=== PATIENT | male | born 1925 | race Caucasian/White ===

== ENCOUNTER 2017-01-24 20:50 | Emergency (ER) | payer MEDICARE ==
[~2017-01-24] VITALS: Ht 167.6 cm; Wt 52.9 kg
[~2017-01-24 20:50] MED LIST: LEVO50TA4 PO; METO50TA OR; ST J81CH PO
[2017-01-24 21:03] VITALS: BP 137/63; PULSE 72; RESP 18; TEMP 97.8; O2SAT 95
== END 2017-01-24 23:20 | disposition left against medical advice (07) ==
LOC: PHED 20:50
DX: Z53.21 Procedure and treatment not carried out due to patient leaving prior to being seen by health care provider (principal)
CPT/HCPCS: 99281

== ENCOUNTER 2017-02-19 15:47 | Emergency (ER) | payer MEDICARE ==
[~2017-02-19] VITALS: Ht 167.6 cm; Wt 50.0 kg
[2017-02-19 16:17] VITALS: BP 129/51; PULSE 79; RESP 18; TEMP 99; O2SAT 93
[2017-02-19] MEDS ORDERED: SODIUM CHLOR 0.9% 1000 ML INJ 1,000 ML IV SCH (16:54)
[2017-02-19] MEDS ORDERED: LEVO88TA2 PO (16:55)
[2017-02-19] MEDS ORDERED: ASPI81TA11 PO (16:55)
[2017-02-19] MEDS ORDERED: METO25TA3 PO (16:55)
[2017-02-19] MEDS ORDERED: LOVA40TA PO (16:55)
[2017-02-19] MEDS ORDERED: SODIUM CHLORIDE 0.9% FLUSH 10 ML FLUSH IV FLUSH PRN (17:00)
[2017-02-19] MEDS: ONDANSETRON HCL 4 MG/2 ML VIAL IVP ONE ×2 (17:00→17:31)
--- NOTE | 2017-02-19 17:18 | RADRPT ---
EXAM DATE/TIME: 02/19/2017 17:02 [facility] COMPARISON: No previous studies available for comparison. INDICATIONS : Fever, cough. MEDICAL HISTORY : Hypertension. SURGICAL HISTORY : Cardiac stent. ENCOUNTER: Initial ACUITY: 1 week PAIN SCORE: 0/10 LOCATION: Bilateral chest FINDINGS: A single view of the chest demonstrates the lungs to be symmetrically aerated without evidence of mas s, infiltrate or effusion. The cardiomediastinal contours are unremarkable. Osseous structures are intact. CONCLUSION: No acute disease. Chato Bach MD on February 19, 2017 at 17:17 Board Certified Radiologist. This report was verified electronically.
[2017-02-19 17:33] LABS: AUTOMATED NEUTROPHIL # 10.6 TH/MM3 (1.8-7.7); BASOPHIL # 0.2 TH/MM3 (0-0.2); BASOPHIL % 1.7 % (0.0-2.0); EOSINOPHIL % 0.2 % (0.0-4.0); LYMPH % 7.7 % (9.0-44.0); MEAN CELL VOLUME 90.1 FL (80.0-100.0); MEAN CORPUSCULAR HEMOGLOBIN 29.5 PG (27.0-34.0); MEAN CORPUSCULAR HGB CONC 32.7 % (32.0-36.0); MONO % 7.3 % (0.0-8.0); NEUT % 83.1 % (16.0-70.0); PLATELET COUNT 255 TH/MM3 (150-450); RED BLOOD COUNT 3.11 MIL/MM3 (4.50-5.90); RED CELL DISTRIBUTION WIDTH 15.5 % (11.6-17.2); WHITE BLOOD COUNT 12.7 TH/MM3 (4.0-11.0)
[2017-02-19 17:35] LABS: CHLORIDE 101 MEQ/L (98-107); POTASSIUM 3.6 MEQ/L (3.5-5.1); SODIUM (NA) 134 MEQ/L (136-145)
[2017-02-19 17:37] LABS: HEMO FLAGS DIFF FINAL
[2017-02-19 17:39] LABS: ANION GAP 10 MEQ/L (5-15); BICARBONATE 22.9 MEQ/L (21.0-32.0); BLOOD UREA NITROGEN 23 MG/DL (7-18)
[2017-02-19 17:42] LABS: ALT (GPT) 13 U/L (12-78); AST (GOT) 15 U/L (15-37); GLOMERULAR FILTRATION RATE 57 ML/MIN (>89)
--- NOTE | 2017-02-19 17:42 | PD ---
HPI Chief Complaint: Cold / Flu Symptoms Time Seen by Provider: 16:34 Travel History International Travel<30 days: No Contact w/Intl Traveler<30days: No Traveled to known affect area: No History of Present Illness HPI 89 yo M c/o subjective fever, nausea, diarrhea and cough with dyspnea. Duration approx 2-3 days. Generalized abdominal pain also reported. Onset gradual. Pt sent from Dr Baca's office where he had a fever. PFSH Past Medical History Hx Anticoagulant Therapy: No Arthritis: Yes Autoimmune Disease: No Blood Disorders: No Depression: Yes (DEPRESSION DUE TO PAIN) Cancer: Yes (Kidney, colon, prostate) Cardiovascular Problems: Yes High Cholesterol: Yes Chemotherapy: Yes Cerebrovascular Accident: Yes Diminished Hearing: Yes ([place] - PT WEARS HEARING AIDS) Endocrine: No Gastrointestinal Disorders: Yes (G I BLEEDING; RECTUM CANCER) GERD: Yes Genitourinary: Yes (LEFT KIDNEY CANCER) Hypertension: Yes Immune Disorder: No Implanted Vascular Access Dvce: Yes Musculoskeletal: Yes Neurologic: Yes Psychiatric: No Reproductive: No Respiratory: Yes Migraines: Yes Radiation Therapy: No Thyroid Disease: Yes (Hypo-) Tetanus Vaccination: < 5 Years Influenza Vaccination: Yes Past Surgical History Abdominal Surgery: No Body Medical Devices: CARDIAC STENT; LIA EYE LENS Cardiac Surgery: Yes (CARDIAC STENT) Ear Surgery: No Endocrine Surgery: No Eye Surgery: Yes (LIA CATARACT SX) Genitourinary Surgery: Yes (LEFT NEPHRECTOMY AND PARTIAL BLADDER REMOVAL) Gynecologic Surgery: No Neurologic Surgery: No Oral Surgery: Yes (T&A AGE 7) Thoracic Surgery: No Other Surgery: Yes (Kidney, colon both for CA) Social History Alcohol Use: No Tobacco Use: No (FORMER) Substance Use: No Allergies-Medications (Allergen,Severity, Reaction): Coded Allergies: No Known Allergies (Verified , 02/19/17) Reported Meds & Prescriptions Reported Meds & Active Scripts Active Zofran (Ondansetron HCl) 4 Mg Tab 4 Mg PO Q6HR PRN Reported Aspirin EC (Aspirin) 81 Mg Tabdr 81 Mg PO DAILY Levothyroxine (Levothyroxine Sodium) 88 Mcg Tab 88 Mcg PO DAILY Lovastatin 40 Mg Tab 40 Mg PO HS Metoprolol Tartrate 25 Mg Tab 25 Mg PO DAILY Review of Systems Except as stated in HPI: all other systems reviewed are Neg General / Constitutional: No: Fever Respiratory: Positive: Cough Gastrointestinal: Positive: Nausea, Abdominal Pain Physical Exam Narrative GENERAL: 89 yo M, WNWD, NAD SKIN: Warm and dry. HEAD: Atraumatic. Normocephalic. EYES: Pupils equal and round. No scleral icterus. No injection or drainage. ENT: No nasal bleeding or discharge. Mucous membranes pink and moist. NECK: Trachea midline. No JVD. CARDIOVASCULAR: Regular rate and rhythm. RESPIRATORY: No accessory muscle use. Clear to auscultation. Breath sounds equal bilaterally. GASTROINTESTINAL: Soft, minimal TTP diffusely. No flank TTP. MUSCULOSKELETAL: Extremities without clubbing, cyanosis, or edema. No obvious deformities. NEUROLOGICAL: Awake and alert. No obvious cranial nerve deficits. Motor grossly within normal limits. Five out of 5 muscle strength in the arms and legs. Normal speech. PSYCHIATRIC: Appropriate mood and affect; insight and judgment normal. Data Data Last Documented VS Vital Signs Date Time Temp Pulse Resp B/P (MAP) Pulse Ox O2 Delivery O2 Flow Rate FiO2 02/19/17 20:05 02/19/17 19:30 78 16 95 Room Air 02/19/17 18:37 98.0 VS reviewed Orders Orders Complete Blood Count With Diff (02/19/17 16:54) Comprehensive Metabolic Panel (02/19/17 16:54) Lipase (02/19/17 16:54) Urinalysis - C+S If Indicated (02/19/17 16:54) Ct Abd/Pel W Iv Contrast(Rout) (02/19/17 16:54) Iv Access Insert/Monitor (02/19/17 16:54) Ecg Monitoring (02/19/17 16:54) Oximetry (02/19/17 16:54) Ondansetron Inj (Zofran Inj) (02/19/17 17:00) Sodium Chlor 0.9% 1000 Ml Inj (Ns 1000 M (02/19/17 16:54) Sodium Chloride 0.9% Flush (Ns Flush) (02/19/17 17:00) Chest, Single Ap (02/19/17 16:54) Iodixanol 320 Inj (Rad Ct) (Visipaque 32 (02/19/17 18:26) Labs Laboratory Tests Test 02/19/17 17:20 02/19/17 18:55 White Blood Count 12.7 TH/MM3 Red Blood Count 3.11 MIL/MM3 Hemoglobin 9.2 GM/DL Hematocrit 28.0 % Mean Corpuscular Volume 90.1 FL Mean Corpuscular Hemoglobin 29.5 PG Mean Corpuscular Hemoglobin Concent 32.7 % Red Cell Distribution Width 15.5 % Platelet Count 255 TH/MM3 Mean Platelet Volume 7.4 FL Neutrophils (%) (Auto) 83.1 % Lymphocytes (%) (Auto) 7.7 % Monocytes (%) (Auto) 7.3 % Eosinophils (%) (Auto) 0.2 % Basophils (%) (Auto) 1.7 % Neutrophils # (Auto) 10.6 TH/MM3 Lymphocytes # (Auto) 1.0 TH/MM3 Monocytes # (Auto) 0.9 TH/MM3 Eosinophils # (Auto) 0.0 TH/MM3 Basophils # (Auto) 0.2 TH/MM3 CBC Comment DIFF FINAL Differential Comment Blood Urea Nitrogen 23 MG/DL Creatinine 1.20 MG/DL Random Glucose 100 MG/DL Total Protein 6.1 GM/DL Albumin 2.6 GM/DL Calcium Level 8.5 MG/DL Alkaline Phosphatase 81 U/L Aspartate Amino Transf (AST/SGOT) 15 U/L Alanine Aminotransferase (ALT/SGPT) 13 U/L Total Bilirubin 0.5 MG/DL Sodium Level 134 MEQ/L Potassium Level 3.6 MEQ/L Chloride Level 101 MEQ/L Carbon Dioxide Level 22.9 MEQ/L Anion Gap 10 MEQ/L Estimat Glomerular Filtration Rate 57 ML/MIN Lipase 141 U/L Urine Color YELLOW Urine Turbidity CLEAR Urine pH 6.0 Urine Specific [place] 1.010 Urine Protein NEG mg/dL Urine Glucose (UA) NEG mg/dL Urine Ketones NEG mg/dL Urine Occult Blood NEG Urine Nitrite NEG Urine Bilirubin NEG Urine Leukocyte Esterase NEG Urine WBC 0-2 /hpf Urine Squamous Epithelial Cells 0-5 /hpf Microscopic Urinalysis Comment CULT NOT INDICATED MDM Medical Decision Making Medical Screen Exam Complete: Yes Emergency Medical Condition: Yes Medical Record Reviewed: Yes Differential Diagnosis Constipation, Gastritis, Acute Cholecystitis, Biliary Colic, Pancreatitis, HAND , Hepatitis, Bowel Obstruction, Cystitis, Mesenteric Ischemia, AAA, Appendicitis , Renal Stone/Hydronephrosis, GERD, perforated viscous Narrative Course CBC & BMP Diagram 02/19/17 17:20 Total Protein 6.1 L, Albumin 2.6 L, Calcium Level 8.5, Alkaline Phosphatase 81, Aspartate Amino Transf (AST/SGOT) 15, Alanine Aminotransferase (ALT/SGPT) 13, Total Bilirubin 0.5 Lipase normal Last 24 hours Impressions Chest X-Ray 02/19/17 1654 Signed Impressions: Service Date/Time: Sunday, February 19, 2017 17:02 - CONCLUSION: No acute disease. Chato Bach MD Abdomen/Pelvis CT 02/19/17 1654 Signed Impressions: Service Date/Time: Sunday, February 19, 2017 18:19 - CONCLUSION: 1. No acute finding is identified to explain the clinical symptoms. Small bowel and colon are diffusely distended mostly with fluid which is atypical. There are no findings to indicate bowel obstruction. 2. Non acute findings include severe atherosclerotic disease and cholelithiasis. There is osseous change in the left pubic bone which is nonspecific but could represent Paget's disease. Pete Carey MD Blood work is reassuring. Imaging is reassuring. UA pending at time of dictation. Oncoming provider to follow up UA. Scripts Ondansetron (Zofran) 4 Mg Tab 4 MG PO Q6HR Y for NAUSEA OR VOMITING, #21 TAB 0 Refills Prov: Reuben Mueller MD 02/19/17 Jason Mcpherson MD Feb 19, 2017 17:42
[2017-02-19 17:43] LABS: TOTAL BILIRUBIN ADULT 0.5 MG/DL (0.2-1.0)
[2017-02-19 17:45] LABS: ALKALINE PHOSPHATASE 81 U/L (45-117)
[2017-02-19] MEDS ORDERED: IODIXANOL 320 MG/ML 10 ML VIAL (for Rad CT) IV ONE (18:26)
[2017-02-19 18:36] VITALS: RESP 16; O2SAT 96
[2017-02-19 18:37] VITALS: BP 149/64; PULSE 76; RESP 16; TEMP 98; O2SAT 96
--- NOTE | 2017-02-19 18:42 | RADRPT ---
EXAM DATE/TIME: 02/19/2017 18:19 [facility] COMPARISON: No previous studies available for comparison. INDICATIONS : Non specific abdominal pain and fever. IV CONTRAST: 50 cc Visipaque (iodixanol) IV ORAL CONTRAST: No oral contrast ingested. RADIATION DOSE: 5.38 CTDIvol (mGy) MEDICAL HISTORY : Cardiovascular disease. Hypertension. Cerebrovascular disease.Rectal cancer. Left renal cancer. SURGICAL HISTORY : Coronary artery stent. Nephrectomy, left.Bladder repair. ENCOUNTER: Initial ACUITY: 2 days PAIN SCALE: 4/10 LOCATION: abdomen TECHNIQUE: Volumetric scanning of the abdomen and pelvis was performed. Using automated exposure control and ad justment of the mA and/or kV according to patient size, radiation dose was kept as low as reasonably achievable to obtain optimal diagnostic quality images. DICOM format image data is available electro nically for review and comparison. FINDINGS: LOWER LUNGS: There is a calcified granuloma in the right lower lobe with calcified lymph nodes in the right hilum. There is atelectasis at the lung bases. Dense calcification is present in the mitral annulus. LIVER: Homogeneous density without lesion. There is no dilation of the biliary tree. There is a single alex cified stone measuring 12 mm in the gallbladder. No wall thickening is present.. SPLEEN: Normal size with multiple calcifications likely related to prior granulomatous infection. PANCREAS: No acute abnormality. KIDNEYS: Left kidney is absent with clips in the renal fossa. The right kidney has a normal appearance without hydronephrosis, stone, or mass. ADRENAL GLANDS: Within normal limits. VASCULAR: There is severe atherosclerotic disease with ectatic infrarenal aorta. BOWEL/MESENTERY: Stomach and small bowel demonstrate no definite abnormality. Small bowel is mostly distended with flu id and measures up to 3 cm. Note specific transition point is identified. There is also fluid within the colon particularly the right colon. Mild sigmoid diverticulosis is present. There is a bowel stap le line in the rectum. There is no free intraperitoneal air or fluid. ABDOMINAL WALL: There is an anterior abdominal wall hernia to the right of the umbilicus containing anterior wall of a segment of bowel. There is also left lateral and posterior lateral abdominal wall laxity. These alejandro nges are likely related to prior nephrectomy. RETROPERITONEUM: There is no lymphadenopathy. BLADDER: No wall thickening or mass. REPRODUCTIVE: Dilution markers are present within the prostate gland. INGUINAL: There is no lymphadenopathy or hernia. MUSCULOSKELETAL: There degenerative changes of the lumbar spine with focal area of cortical and trabecular thickening involving the left pubic bone. Simple-appearing lipoma is present in the left proximal anterior thigh . CONCLUSION: 1. No acute finding is identified to explain the clinical symptoms. Small bowel and colon are diffuse ly distended mostly with fluid which is atypical. There are no findings to indicate bowel obstruction . 2. Non acute findings include severe atherosclerotic disease and cholelithiasis. There is osseous alejandro nge in the left pubic bone which is nonspecific but could represent Paget's disease. Pete Carey MD on February 19, 2017 at 18:32 Board Certified Radiologist. This report was verified electronically.
[2017-02-19 19:16] LABS: BLOOD, URINE NEG (NEG); GLUCOSE,URINE NEG (NEG); KETONE, URINE NEG (NEG); NITRITE,URINE NEG (NEG)
[2017-02-19 19:22] LABS: URINE COLOR YELLOW (YELLW/STRAW)
[2017-02-19 19:23] LABS: COMMENT (UR) CULT NOT INDICATED; CULTURE IF INDICATED CULT NOT INDICATED; SQUAMOUS EPITHELIAL CELL URINE 0-5 /hpf (0-5); WBC, URINE 0-2 /hpf (0-5)
[2017-02-19 19:30] VITALS: BP 140/63; PULSE 78; RESP 16; O2SAT 95
[2017-02-19] MEDS ORDERED: ZOFR4TAB PO (19:44)
--- NOTE | 2017-02-19 19:44 | PD ---
Physical Exam Time Seen by Provider: 19:[address] Mcpherson left this patient with me to check the urine and make a disposition , likely discharge. Data Data Last Documented VS Vital Signs Date Time Temp Pulse Resp B/P (MAP) Pulse Ox O2 Delivery O2 Flow Rate FiO2 02/19/17 19:00 79 18 94 Room Air 02/19/17 18:37 98.0 149/64 (92) Orders Orders Complete Blood Count With Diff (02/19/17 16:54) Comprehensive Metabolic Panel (02/19/17 16:54) Lipase (02/19/17 16:54) Urinalysis - C+S If Indicated (02/19/17 16:54) Ct Abd/Pel W Iv Contrast(Rout) (02/19/17 16:54) Iv Access Insert/Monitor (02/19/17 16:54) Ecg Monitoring (02/19/17 16:54) Oximetry (02/19/17 16:54) Ondansetron Inj (Zofran Inj) (02/19/17 17:00) Sodium Chlor 0.9% 1000 Ml Inj (Ns 1000 M (02/19/17 16:54) Sodium Chloride 0.9% Flush (Ns Flush) (02/19/17 17:00) Chest, Single Ap (02/19/17 16:54) Iodixanol 320 Inj (Rad Ct) (Visipaque 32 (02/19/17 18:26) Labs Laboratory Tests Test 02/19/17 17:20 02/19/17 18:55 White Blood Count 12.7 TH/MM3 Red Blood Count 3.11 MIL/MM3 Hemoglobin 9.2 GM/DL Hematocrit 28.0 % Mean Corpuscular Volume 90.1 FL Mean Corpuscular Hemoglobin 29.5 PG Mean Corpuscular Hemoglobin Concent 32.7 % Red Cell Distribution Width 15.5 % Platelet Count 255 TH/MM3 Mean Platelet Volume 7.4 FL Neutrophils (%) (Auto) 83.1 % Lymphocytes (%) (Auto) 7.7 % Monocytes (%) (Auto) 7.3 % Eosinophils (%) (Auto) 0.2 % Basophils (%) (Auto) 1.7 % Neutrophils # (Auto) 10.6 TH/MM3 Lymphocytes # (Auto) 1.0 TH/MM3 Monocytes # (Auto) 0.9 TH/MM3 Eosinophils # (Auto) 0.0 TH/MM3 Basophils # (Auto) 0.2 TH/MM3 CBC Comment DIFF FINAL Differential Comment Blood Urea Nitrogen 23 MG/DL Creatinine 1.20 MG/DL Random Glucose 100 MG/DL Total Protein 6.1 GM/DL Albumin 2.6 GM/DL Calcium Level 8.5 MG/DL Alkaline Phosphatase 81 U/L Aspartate Amino Transf (AST/SGOT) 15 U/L Alanine Aminotransferase (ALT/SGPT) 13 U/L Total Bilirubin 0.5 MG/DL Sodium Level 134 MEQ/L Potassium Level 3.6 MEQ/L Chloride Level 101 MEQ/L Carbon Dioxide Level 22.9 MEQ/L Anion Gap 10 MEQ/L Estimat Glomerular Filtration Rate 57 ML/MIN Lipase 141 U/L Urine Color YELLOW Urine Turbidity CLEAR Urine pH 6.0 Urine Specific [place] 1.010 Urine Protein NEG mg/dL Urine Glucose (UA) NEG mg/dL Urine Ketones NEG mg/dL Urine Occult Blood NEG Urine Nitrite NEG Urine Bilirubin NEG Urine Leukocyte Esterase NEG Urine WBC 0-2 /hpf Urine Squamous Epithelial Cells 0-5 /hpf Microscopic Urinalysis Comment CULT NOT INDICATED MDM Medical Record Reviewed: Yes Supervised Visit with EDMUND: No Interpretation(s) The urinalysis is normal. Differential Diagnosis Constipation, gastritis, acute cholecystitis, biliary colic, pancreatitis, hepatitis, bowel obstruction, mesenteric ischemia, abdominal aortic aneurysm- unlikely, cystitis, appendicitis, urinary stone, GERD, perforated viscus, urinary tract infection, gastroenteritis Narrative Course At this time the patient has no imaging/lab work to point to a specific cause for his symptoms. He does have diffusely distended small bowel and colon without any evidence for obstruction on the CT. The chest x-ray is normal. He does not have a urinary infection. Impression: Gastroenteritis. This is likely of viral etiology. Plan: The patient be given Zofran and follow-up with his primary care physician. He should increase clear liquids Diagnosis Primary Impression: Gastroenteritis and colitis, viral Reuben Mueller MD Feb 19, 2017 19:44
== END 2017-02-19 20:07 | disposition home or self-care (01) ==
LOC: PHED 15:47
DX: A08.4 Viral intestinal infection, unspecified (principal); M19.90 Unspecified osteoarthritis, unspecified site; I10 Essential (primary) hypertension; E78.00 Pure hypercholesterolemia, unspecified; E03.9 Hypothyroidism, unspecified; Z79.899 Other long term (current) drug therapy; Z86.73 Personal history of transient ischemic attack (TIA), and cerebral infarction without residual deficits
CPT/HCPCS: 71010; 74177; 80053; 81001; 83690; 85025; 96360; 96361; 99285; J7030; Q9967; J2405

== ENCOUNTER → 2017-04-11 | Outpatient (CLI) | payer MEDICARE ==
[~2017-04-11] MED LIST changes: +ALBU2TAB4 PO; +ASCO500C PO; +ASPI81TA23 PO; +CALC1TAB34 PO; +FERR240T8 PO; +GAS-CAP3 PO; +HYDR-3516 PO; +HYDR-755 PO; +IPRAAER INH; -LEVO50TA4 PO; +LEVO88TA2 PO; +LOPE-1 PO; +LOVA40TA PO; +METO25TA3 PO; -METO50TA OR; +METO50TA PO; +OXYGENDME NAS.CANULA; +OXYGENTANK NAS.CANULA; -ST J81CH PO; +TRIAPOW6 TP; +VENTAER INH; +VITA500T35 PO; +ZOFR4TAB PO
[2017-04-11 10:59] LABS: BLOOD, URINE NEG (NEG); COMMENT (UR) CULT NOT INDICATED; CULTURE IF INDICATED CULT NOT INDICATED; GLUCOSE,URINE NEG (NEG); KETONE, URINE NEG (NEG); NITRITE,URINE NEG (NEG); URINE COLOR YELLOW (YELLW/STRAW)
[2017-04-11 10:59] LABS: AUTOMATED NEUTROPHIL # 5.1 TH/MM3 (1.8-7.7); BASOPHIL % 0.6 % (0.0-2.0); EOSINOPHIL # 0.3 TH/MM3 (0-0.4); EOSINOPHIL % 3.8 % (0.0-4.0); HEMATOCRIT 32.1 % (39.0-51.0); HEMO FLAGS DIFF FINAL; LYMPH % 16.9 % (9.0-44.0); LYMPHOCYTE # 1.2 TH/MM3 (1.0-4.8); MEAN CELL VOLUME 95.1 FL (80.0-100.0); MEAN CORPUSCULAR HEMOGLOBIN 30.9 PG (27.0-34.0); MEAN CORPUSCULAR HGB CONC 32.5 % (32.0-36.0); MONO % 7.9 % (0.0-8.0); NEUT % 70.8 % (16.0-70.0); PLATELET COUNT 268 TH/MM3 (150-450); RED BLOOD COUNT 3.38 MIL/MM3 (4.50-5.90); RED CELL DISTRIBUTION WIDTH 15.3 % (11.6-17.2); WHITE BLOOD COUNT 7.2 TH/MM3 (4.0-11.0)
[2017-04-11 11:12] LABS: ANION GAP 9 MEQ/L (5-15); AST (GOT) 23 U/L (15-37); BICARBONATE 26.2 MEQ/L (21.0-32.0); BLOOD UREA NITROGEN 21 MG/DL (7-18); CHLORIDE 107 MEQ/L (98-107); GLOMERULAR FILTRATION RATE 67 ML/MIN (>89); GLUCOSE,FASTING 94 MG/DL (74-99); SODIUM (NA) 142 MEQ/L (136-145)
[2017-04-11 11:14] LABS: ALT (GPT) 21 U/L (12-78)
[2017-04-11 11:16] LABS: ALKALINE PHOSPHATASE 101 U/L (45-117); TOTAL BILIRUBIN ADULT 0.3 MG/DL (0.2-1.0)
--- NOTE | 2017-04-11 11:36 | RADRPT ---
EXAM DATE/TIME: 04/11/2017 11:14 [facility] COMPARISON: CHEST SINGLE AP, February 19, 2017, 17:02. INDICATIONS : Evaluate for pneumonia, pneumothorax and communicable diseases. Pre-op hernia repair MEDICAL HISTORY : Cardiovascular disease. Hypertension Carcinoma, rectal. SURGICAL HISTORY : Coronary artery Stent ENCOUNTER: Initial ACUITY: 1 day PAIN SCORE: 0/10 LOCATION: chest FINDINGS: The examination demonstrates moderate COPD changes. These are stable compared to previous examination . The cardiac and mediastinal contours are within normal limits. The visualized osseous structures ar e grossly intact. CONCLUSION: 1. COPD changes. No acute abnormality. Stable compared to previous. Jason Hamilton MD on April 11, 2017 at 11:34 Board Certified Radiologist. This report was verified electronically.
--- NOTE | 2017-04-12 18:04 | EKG ---
Date Performed: 04/11/2017 Time Performed: 10:31:03 PTAGE: 89 years EKG: Sinus rhythm Normal ECG PREVIOUS TRACING : 11/25/2004 19.35 Since the prior tracing, there has been a slight leftward s hift in axis, but otherwise no significant serial change. DOCTOR: Dejah Hernandez Interpretating Date/Time 04/12/2017 18:02:52
== END ==
LOC: CPRE 09:56
PROVIDERS: ATTEND Colon & Rectal Surgery
DX: Z01.810 Encounter for preprocedural cardiovascular examination (principal); Z01.811 Encounter for preprocedural respiratory examination; Z01.812 Encounter for preprocedural laboratory examination; K43.6 Other and unspecified ventral hernia with obstruction, without gangrene
CPT/HCPCS: 36415; 71020; 80053; 81001; 85025; 93005

== ENCOUNTER 2017-04-18 09:18 | Observation (INO) | payer MEDICARE ==
[~2017-04-18] VITALS: Ht 167.6 cm; Wt 49.5 kg
[~2017-04-18 09:18] MED LIST changes: -ALBU2TAB4 PO; +BUPIVACAINE/EPINEPHRINE 0.5% PF 30 ML VIAL ONE; -HYDR-3516 PO; +LIDOCAINE 1%/EPINEPHrine 1:100,000 SOLN 50 ML VIAL ONE; -METO25TA3 PO; -OXYGENDME NAS.CANULA; -OXYGENTANK NAS.CANULA; -VENTAER INH; -ZOFR4TAB PO
[2017-04-18] MEDS ORDERED: CHLORHEXIDINE GLUCONATE 2 % 1 PACK (2 CLOTHS) TOPICAL PRN (10:00)
[2017-04-18] MEDS ORDERED: INSULIN HUMAN REGULAR 1,000 UNITS/10 ML VIAL SQ PRN (10:00)
[2017-04-18] MEDS ORDERED: POVIDONE IODINE 5% (ANTISEPSIS KIT) 4 APPLICATIONS EACH NARE PRN (10:00)
[2017-04-18] MEDS ORDERED: LACTATED RINGER'S 1000 ML IV PRN (10:00)
[2017-04-18] MEDS ORDERED: METOPROLOL TARTRATE 25 MG TAB PO PRN (10:00)
[2017-04-18] MEDS ORDERED: SODIUM CHLORID 0.9% 500 ML IV PRN (10:00)
[2017-04-18] MEDS ORDERED: ACETAMINOPHEN 1000 MG/100 ML 100 ML IV ONE (10:54)
--- NOTE | 2017-04-18 11:33 | PD.HP.UP ---
H&P Update Note The Pre-Admit History and Physical Examination regarding the above named patient was reviewed (including, but not limited to, vital signs, heart, lungs, co-morbid conditions), and upon re-examination it is noted that: the patient's condition has not significantly changed since the last examination. Be Ferguson MD Apr 18, 2017 11:33
[2017-04-18] MEDS ORDERED: ceFAZolin 2 GM PREMIX 50 ML ONE (11:57)
[2017-04-18] MEDS ORDERED: ROCURONIUM INJ 50 MG/5 ML SYRINGE IV PUSH ONE (12:00)
[2017-04-18] MEDS ORDERED: LABETALOL HCL 100 MG/20 ML VIAL IV ONE (12:00)
[2017-04-18] MEDS ORDERED: LIDOCAINE HCL 1% PF 5 ML SYRINGE OTHER ONE (12:00)
[2017-04-18] MEDS ORDERED: DEXAMETHASONE SOD PHOS 4 MG/ML VIAL IV ONE (12:00)
[2017-04-18] MEDS ORDERED: PROPOFOL 200 MG/20 ML AMP IV ONE (12:00)
[2017-04-18] MEDS ORDERED: NEOSTIGMINE 3 MG/3 ML SYR IV ONE (12:00)
[2017-04-18] MEDS ORDERED: ONDANSETRON HCL 4 MG/2 ML VIAL IV ONE (12:00)
[2017-04-18] MEDS ORDERED: GLYCOPYRROLATE 1 MG/5 ML SYRINGE IV PUSH ONE (12:00)
[2017-04-18] MEDS ORDERED: ACETAMINOPHEN/HYDROcodone 325 MG/5 MG TAB PO PRN (13:00)
[2017-04-18] MEDS ORDERED: ENALAPRILAT 2.5 MG/2 ML VIAL IV PUSH PRN (13:00)
[2017-04-18] MEDS ORDERED: NALOXONE HCL 0.4 MG/ML AMP IV PUSH PRN (13:00)
[2017-04-18] MEDS ORDERED: Post-op Orders (for Pharmacy) MISC XX ONE (13:00)
[2017-04-18] MEDS ORDERED: MORPHINE SULFATE 30 MG/30 ML PCA IV SCH (13:00)
[2017-04-18] MEDS ORDERED: ACETAMINOPHEN 325 MG TAB PO PRN (13:00)
[2017-04-18] MEDS ORDERED: SODIUM CHLORIDE 0.9% FLUSH 5 ML FLUSH IVF PRN (13:00)
[2017-04-18] MEDS ORDERED: ENALAPRILAT 1.25 MG/ML VIAL IV PUSH PRN (13:00)
[2017-04-18] MEDS ORDERED: KETOROLAC TROMETHAMINE 30 MG/ML (IVP) VIAL IVP PRN (13:00)
[2017-04-18] MEDS ORDERED: BENZOCAINE 6 MG/MENTHOL 10 MG LOZENGE BUCCAL PRN (13:00)
[2017-04-18] MEDS ORDERED: POTASSIUM CHLOR 20 MEQ PREMIX 100 ML IV PRN (13:00)
[2017-04-18] MEDS ORDERED: ONDANSETRON HCL 4 MG/2 ML VIAL IV PUSH PRN (13:00)
[2017-04-18] MEDS ORDERED: POTASSIUM CHLOR 40 MEQ PREMIX 100 ML IV PRN (13:00)
[2017-04-18] MEDS ORDERED: DO NOT ADM ANY ANTICOAGULANT DRUGS PRN (13:30)
[2017-04-18] MEDS: D5-NS + KCL 20 MEQ INJ 1,000 ML IV SCH (13:30)
[2017-04-18] MEDS: PCA - TOTAL MG MORPHINE DELIVERED PER SHIFT SCH ×2 (14:00→22:08)
[2017-04-18] MEDS: METOCLOPRAMIDE HCL 10 MG/2 ML VIAL IVS SCH ×2 (14:00→20:25)
[2017-04-18] MEDS ORDERED: LOPERAMIDE HCL 2 MG CAP PO PRN (14:15)
[2017-04-18 17:24] VITALS: O2SAT 98
[2017-04-18] MEDS: ALBUTEROL SULFATE 90 MCG/ACT HFA 18 GM INHALER INH SCH ×2 (17:52→21:00)
[2017-04-18] MEDS ORDERED: NON-FORMULARY DRUG (Ipratropium-Albuterol Inh (Combivent Respimat Inh) 1 PUFF) INH SCH (18:00)
[2017-04-18] MEDS: SODIUM CHLORIDE 0.9% FLUSH 5 ML FLUSH IVF SCH ×2 (19:13→20:24)
[2017-04-18 20:00] VITALS: BP 115/56; PULSE 93; RESP 18; TEMP 96.9; O2SAT 96
[2017-04-18] MEDS: PRAVASTATIN SOD 40 MG TAB PO SCH (20:24)
[2017-04-19] VITALS (11 sets, daily range): BP systolic 126–166; BP diastolic 60–80; PULSE 70–82; RESP 14–24; TEMP 95.5–97; O2SAT 85–100
[2017-04-19 05:19] LABS: AUTOMATED NEUTROPHIL # 10.2 TH/MM3 (1.8-7.7); BASOPHIL % 0.1 % (0.0-2.0); EOSINOPHIL % 0.2 % (0.0-4.0); HEMATOCRIT 26.9 % (39.0-51.0); HEMO FLAGS DIFF FINAL; LYMPHOCYTE # 0.8 TH/MM3 (1.0-4.8); MEAN CORPUSCULAR HEMOGLOBIN 30.8 PG (27.0-34.0); MEAN CORPUSCULAR HGB CONC 32.8 % (32.0-36.0); MONO % 5.7 % (0.0-8.0); PLATELET COUNT 237 TH/MM3 (150-450); RED BLOOD COUNT 2.86 MIL/MM3 (4.50-5.90); RED CELL DISTRIBUTION WIDTH 15.1 % (11.6-17.2); WHITE BLOOD COUNT 11.7 TH/MM3 (4.0-11.0)
[2017-04-19 05:47] LABS: BICARBONATE 26.3 MEQ/L (21.0-32.0); POTASSIUM 4.3 MEQ/L (3.5-5.1)
[2017-04-19] MEDS: LEVOTHYROXINE SODIUM 88 MCG TAB PO SCH (05:47)
[2017-04-19] MEDS: D5-NS + KCL 20 MEQ INJ 1,000 ML IV SCH (05:55)
[2017-04-19] MEDS: PCA - TOTAL MG MORPHINE DELIVERED PER SHIFT SCH ×3 (05:56→21:48)
[2017-04-19] MEDS: ALBUTEROL SULFATE 90 MCG/ACT HFA 18 GM INHALER INH SCH ×2 (08:44→13:00)
[2017-04-19] MEDS: METOCLOPRAMIDE HCL 10 MG/2 ML VIAL IVS SCH ×2 (08:45→21:47)
[2017-04-19] MEDS: ASPIRIN EC 81 MG TABEC PO SCH (08:45)
[2017-04-19] MEDS: PANTOPRAZOLE SOD 40 MG DELAYED RELEASE TAB PO SCH (08:45)
[2017-04-19] MEDS: METOPROLOL TARTRATE 50 MG TAB PO SCH (08:45)
[2017-04-19] MEDS: TIOTROPIUM BROMIDE 18 MCG INH INH SCH ×2 (09:00→17:07)
[2017-04-19] MEDS: PANTOPRAZOLE SODIUM 40 MG VIAL IVP SCH (09:00)
[2017-04-19] MEDS: hydrOXYzine HCL 10 MG TAB PO SCH (09:00)
[2017-04-19] MEDS ORDERED: TRIAMCINOLONE 0.1% TP SCH (09:00)
[2017-04-19] MEDS: SODIUM CHLORIDE 0.9% FLUSH 5 ML FLUSH IVF SCH ×2 (09:00→21:00)
[2017-04-19] MEDS ORDERED: HYDR-3516 PO (09:57)
--- NOTE | 2017-04-19 09:58 | HHI.FF ---
Face to Face Verification Diagnosis: (1) Ventral hernia Physical Therapy Order: Evaluate and Treat, Improve ambulation, Strength and gait training Home Health Nursing Order: Signs/symptoms of disease process Wound care and dressing changes I have seen patient Emre Lea on 04/19/17. My clinical findings support the need for the requested home health care services because: Ltd mobility - disease progression Deconditioned w/ increased weakness Limited ability to care for self High risk of falls I certify that my clinical findings support that this patient is homebound because: Post-op weakness Unsteady gait/balance Be Fegruson MD Apr 19, 2017 09:58
--- NOTE | 2017-04-19 10:18 | HHI.PR ---
Subjective Remarks C/R Surg POD #1 afebrile, VSS UO good arnulfo PO Objective - Vital Signs Date Time Temp Pulse Resp B/P (MAP) Pulse Ox O2 Delivery O2 Flow Rate FiO2 04/19/17 08:38 98 Nasal Cannula 1.00 04/19/17 08:00 95.5 76 14 149/67 (94) Result Diagram: 04/19/17 0438 04/19/17 0422 Objective Remarks PE alert Abd - soft, wound dry, lat hernia stable A/P Assessment and Plan Imp: stable post-op OOB dc to home rto 1 week Be Ferguson MD Apr 19, 2017 10:17
[2017-04-19] MEDS: ACETAMINOPHEN/HYDROcodone 325 MG/5 MG TAB PO PRN (14:14)
[2017-04-19] MEDS ORDERED: RESP: ALBUTEROL 2.5 MG/3 ML NEB (SCH) INH (16:00)
--- NOTE | 2017-04-19 20:23 | MP ---
cc: CANDELARIA VELOZ M.D. DATE OF SURGERY 04/19/17 PREOPERATIVE DIAGNOSIS Ventral hernia. PROCEDURE Exploratory laparotomy with repair of ventral hernia with insertion of mesh. POSTOPERATIVE DIAGNOSIS Ventral hernia. SURGEON Dr. Jhon Veloz PROCEDURE IN DETAIL The patient was placed in the supine position. After adequate general anesthesia, his abdomen was prepped with Betadine solution and draped in the usual sterile fashion. There was a small ventral hernia in the region of the umbilicus next to his transverse incision. The transverse incision was opened and dissected to the subcutaneous tissue identifying the hernia sac very readily. The umbilicus and subcutaneous tissue were elevated off the fascia exposing the neck of the sac. The musculature of the muscles of the abdominal wall were very thin and atrophic and there was a large hernia in the left lateral side of the abdomen. After defining the neck of the hernia sac, a piece of composite mesh was placed into the abdominal cavity and tacked to the parietoperitoneum. The fascial defect was then closed with several interrupted #1 PDS sutures incorporating the mesh material in the closure. At completion, there did appear to be a fairly secure closure with undue tension. The subcutaneous tissues were irrigated and the skin and subcu tissue closed with interrupted Vicryl sutures, closing the skin with a running subcuticular suture. Wound area washed with normal saline and dried, sterile dressing of Telfa and gauze applied. The patient tolerated the procedure quite well and was brought to recovery room in stable condition. MD EARNEST Quinn/ /5:16 PM /8:15 PM
[2017-04-19] MEDS: RESP: ALBUTEROL 2.5 MG/3 ML NEB (SCH) INH (20:42)
[2017-04-19] MEDS: ALVIMOPAN 12 MG CAPSULE PO SCH (21:47)
[2017-04-19] MEDS: PRAVASTATIN SOD 40 MG TAB PO SCH (21:48)
[2017-04-20] VITALS (8 sets, daily range): BP systolic 130–189; BP diastolic 62–90; PULSE 68–89; RESP 17–19; TEMP 96.2–97.8; O2SAT 91–100
[2017-04-20] MEDS: PCA - TOTAL MG MORPHINE DELIVERED PER SHIFT SCH (06:00)
[2017-04-20 06:02] LABS: AUTOMATED NEUTROPHIL # 7.1 TH/MM3 (1.8-7.7); BASOPHIL % 0.4 % (0.0-2.0); EOSINOPHIL # 0.2 TH/MM3 (0-0.4); EOSINOPHIL % 2.7 % (0.0-4.0); HEMATOCRIT 30.1 % (39.0-51.0); HEMO FLAGS DIFF FINAL; LYMPH % 9.4 % (9.0-44.0); LYMPHOCYTE # 0.8 TH/MM3 (1.0-4.8); MEAN CORPUSCULAR HEMOGLOBIN 30.2 PG (27.0-34.0); MEAN CORPUSCULAR HGB CONC 32.1 % (32.0-36.0); MONO % 5.3 % (0.0-8.0); NEUT % 82.2 % (16.0-70.0); PLATELET COUNT 253 TH/MM3 (150-450); RED CELL DISTRIBUTION WIDTH 15.1 % (11.6-17.2); WHITE BLOOD COUNT 8.6 TH/MM3 (4.0-11.0)
[2017-04-20] MEDS: LEVOTHYROXINE SODIUM 88 MCG TAB PO SCH (06:14)
[2017-04-20 06:16] LABS: BICARBONATE 26.8 MEQ/L (21.0-32.0); POTASSIUM 4.3 MEQ/L (3.5-5.1)
[2017-04-20] MEDS: RESP: ALBUTEROL 2.5 MG/3 ML NEB (SCH) INH ×4 (08:27→20:44)
[2017-04-20] MEDS: PANTOPRAZOLE SODIUM 40 MG VIAL IVP SCH (09:00)
[2017-04-20] MEDS: hydrOXYzine HCL 10 MG TAB PO SCH (09:30)
[2017-04-20] MEDS: ALVIMOPAN 12 MG CAPSULE PO SCH ×2 (09:30→21:25)
[2017-04-20] MEDS: PANTOPRAZOLE SOD 40 MG DELAYED RELEASE TAB PO SCH (09:30)
[2017-04-20] MEDS: METOCLOPRAMIDE HCL 10 MG/2 ML VIAL IVS SCH ×2 (09:31→21:00)
[2017-04-20] MEDS: METOPROLOL TARTRATE 50 MG TAB PO SCH (09:31)
[2017-04-20] MEDS: SODIUM CHLORIDE 0.9% FLUSH 5 ML FLUSH IVF SCH ×2 (09:32→21:00)
[2017-04-20] MEDS: ASPIRIN EC 81 MG TABEC PO SCH (09:34)
--- NOTE | 2017-04-20 16:02 | HHI.PR ---
Subjective Remarks C/R Surg POD #2 afebrile, VSS UO good arnulfo PO still coughing Objective - Vital Signs Date Time Temp Pulse Resp B/P (MAP) Pulse Ox O2 Delivery O2 Flow Rate FiO2 04/20/17 12:47 2.00 04/20/17 11:53 96.8 68 18 130/62 (84) 91 04/20/17 08:27 Nasal Cannula Result Diagram: 04/20/17 0535 04/20/17 0535 Objective Remarks PE alert Abd - soft, wound dry, lat hernia stable min tympany A/P Assessment and Plan Imp: OOB Rsp tx - check CXR rto 1 week Be Ferguson MD Apr 20, 2017 16:02
--- NOTE | 2017-04-20 17:07 | RADRPT ---
EXAM DATE/TIME: 04/20/2017 16:22 [facility] COMPARISON: CHEST SINGLE AP, February 19, 2017, 17:02. INDICATIONS : Shortness of breath. MEDICAL HISTORY : Cardiovascular disease. Hypertension. Cerebrovascular disease.Rectal cancer. Left renal cancer. SURGICAL HISTORY : Coronary artery stent. Nephrectomy, left.Bladder repair ENCOUNTER: Subsequent ACUITY: 1 day PAIN SCORE: 0/10 LOCATION: Bilateral chest FINDINGS: A single view of the chest demonstrates the lungs to be symmetrically aerated without evidence of mas s, infiltrate or effusion. The cardiomediastinal contours are unremarkable. The left hemidiaphragm i s elevated. Osseous structures are intact. CONCLUSION: Lungs are grossly clear. Left hemidiaphragm is elevated. Pb Francois MD on April 20, 2017 at 17:05 Board Certified Radiologist. This report was verified electronically.
[2017-04-20] MEDS: ACETAMINOPHEN/HYDROcodone 325 MG/5 MG TAB PO PRN (21:24)
[2017-04-20] MEDS: PRAVASTATIN SOD 40 MG TAB PO SCH (21:24)
[2017-04-21 00:57] VITALS: BP 156/73; PULSE 75; RESP 18; TEMP 96.6; O2SAT 97
[2017-04-21] MEDS: LEVOTHYROXINE SODIUM 88 MCG TAB PO SCH (06:00)
[2017-04-21 07:45] VITALS: O2SAT 95
[2017-04-21] MEDS: RESP: ALBUTEROL 2.5 MG/3 ML NEB (SCH) INH ×2 (07:45→11:57)
[2017-04-21 08:00] VITALS: BP 176/84; PULSE 79; RESP 18; TEMP 97.1; O2SAT 98
[2017-04-21] MEDS: ASPIRIN EC 81 MG TABEC PO SCH (08:03)
[2017-04-21] MEDS: ALVIMOPAN 12 MG CAPSULE PO SCH (08:04)
[2017-04-21] MEDS: METOPROLOL TARTRATE 50 MG TAB PO SCH (08:04)
[2017-04-21] MEDS: hydrOXYzine HCL 10 MG TAB PO SCH (08:04)
[2017-04-21] MEDS: PANTOPRAZOLE SOD 40 MG DELAYED RELEASE TAB PO SCH (08:04)
[2017-04-21] MEDS: PANTOPRAZOLE SODIUM 40 MG VIAL IVP SCH (08:05)
[2017-04-21] MEDS: METOCLOPRAMIDE HCL 10 MG/2 ML VIAL IVS SCH (08:05)
[2017-04-21] MEDS: TIOTROPIUM BROMIDE 18 MCG INH INH SCH (09:00)
--- NOTE | 2017-04-21 09:16 | HHI.PR ---
Subjective Remarks Pt had urinary and fecal incontinence and is embarrassed and angry. No N or V. Wants to go home. Failed walk test for O2 yesterday. Needs D/C on home O2. Able to ambulate with walker. Objective Vital Signs Date Time Temp Pulse Resp B/P (MAP) Pulse Ox O2 Delivery O2 Flow Rate FiO2 04/21/17 08:00 97.1 79 18 176/84 (114) 98 04/21/17 07:45 95 Nasal Cannula 2.00 04/21/17 00:57 96.6 75 18 156/73 (100) 97 04/20/17 20:55 97.8 81 18 176/87 (116) 95 04/20/17 20:44 95 Nasal Cannula 2.00 04/20/17 18:28 160/70 (100) 04/20/17 16:49 2.00 04/20/17 16:00 97.0 77 19 177/79 (111) 97 04/20/17 12:47 2.00 04/20/17 11:53 96.8 68 18 130/62 (84) 91 I/O 04/20/17 04/20/17 04/20/17 04/21/17 04/21/17 04/21/17 06:59 14:59 22:59 06:59 14:59 22:59 Intake Total 240 ml 650 ml Output Total 800 ml 1000 ml 600 ml Balance -560 ml -350 ml -600 ml Intake Oral 240 ml 650 ml Output Urine Total 800 ml 1000 ml 600 ml # Bowel Movements 2 5 Result Diagram: 04/20/17 0535 04/20/17 0535 Objective Remarks VS-S Abd: benign.Wound clean Assessment and Plan Assessment and Plan Stable requiring O2 D/C today. Pete Masterson MD Apr 21, 2017 09:16
--- NOTE | 2017-04-21 09:23 | HHI.FF ---
Face to Face Verification Diagnosis: (1) Ventral hernia (2) Atelectasis of left lung (3) COPD (chronic obstructive pulmonary disease) Home Health Nursing Order: Medical education Oxygen administration education Wound care and dressing changes Nursing assessment with vital signs I have seen patient Emre Lea on 04/21/17. My clinical findings support the need for the requested home health care services because: Ltd mobility - disease progression Patient has SOB Deconditioned w/ increased weakness Limited ability to care for self Need for psychosocial assistance I certify that my clinical findings support that this patient is homebound because: Post-op weakness Impaired cognitive ability/safety Unsteady gait/balance Unsafe to leave home unassisted Unable to use public transportation Pete Masterson MD Apr 21, 2017 09:23
[2017-04-21] MEDS ORDERED: OXYGENTANK NAS.CANULA (09:28)
[2017-04-21] MEDS ORDERED: OXYGENDME NAS.CANULA (11:30)
[2017-04-21 12:00] VITALS: BP_SYST 193; BP_SYST 203; BP_DIAS 90; BP_DIAS 92; PULSE 73; RESP 21; TEMP 98; O2SAT 98
== END 2017-04-21 14:26 | disposition home health service (06) ==
LOC: HSDC 09:18 → HSDI 12:51 → N07A 15:26
PROVIDERS: ADMIT Colon & Rectal Surgery; ATTEND Colon & Rectal Surgery
DX: K43.9 Ventral hernia without obstruction or gangrene (principal); R06.02 Shortness of breath
CPT/HCPCS: 00752; 49560; 49568; 71010; 80048; 85025; 94150; 94620; 94640; 94664; 96365; 96366; 96375; 96376; 97162; C1781; G0378; G8987; G8988; J0131; J0690; J2270; J2765; J3480; J7120; J7613; J1100; J2405; J2710; J3010